=== PATIENT | female | born 1980 | race Caucasian/White ===

== ENCOUNTER 2018-04-01 20:57 | Emergency (ER) | payer MEDICAID ==
[~2018-04-01] VITALS: Ht 175.3 cm; Wt 165.0 kg
[~2018-04-01 20:57] MED LIST: OMNIPAQUE 350 MG/ML, 100ML BOTTLE ONE
[2018-04-01] MEDS ORDERED: PLEASE ENTER HEIGHT AND WEIGHT MC SCH (21:30)
[2018-04-01] MEDS ORDERED: ONDANSETRON ODT 4 MG PO ONE (21:30)
[2018-04-01] MEDS ORDERED: SODIUM CHLORIDE FLUSH 10ML SYR IVF ONE ×2 (21:30)
[2018-04-01 21:32] LABS: BASOPHILS # (AUTO) 0.04 x10^3/uL (0-0.1); BASOPHILS % (AUTO) 0 % (0-1); EOSINOPHILS # (AUTO) 0.11 x10^3/uL (0-0.4); EOSINOPHILS % (AUTO) 1 % (1-7); LYMPHOCYTES # (AUTO) 2.68 x10^3/uL (1-3.4); LYMPHOCYTES % (AUTO) 16 % (22-44); MD NO; MEAN CORPUSCULAR HEMOGLOBIN 32.3 pg (27.0-34.8); MONOCYTES # (AUTO) 0.48 x10^3/uL (0.2-0.8); MONOCYTES % (AUTO) 3 % (2-9); NEUTROPHILS # (AUTO) 13.96 x10^3/uL (1.8-6.8); NEUTROPHILS % (AUTO) 81 % (42-75); PLATELET COUNT 364 x10^3/uL (130-400); RED BLOOD COUNT 4.84 x10^6/uL (3.82-5.3); RED CELL DISTRIBUTION WIDTH 13.5 % (9.6-15.2)
[2018-04-01] MEDS ORDERED: MORPHINE SULFATE 4 MG/ML, 1ML ONE ×2 (21:37→22:24)
[2018-04-01] MEDS ORDERED: ONDANSETRON ODT 4 MG ONE (21:37)
[2018-04-01 21:43] LABS: ALANINE AMINOTRANSFERASE 27 U/L (12-78); ALBUMIN 3.5 g/dL (3.4-5.0); ANION GAP 10 mmol/L (5-15); CALCIUM 8.8 mg/dL (8.5-10.1); CHLORIDE 105 mmol/L (98-107)
[2018-04-01] MEDS: MORPHINE SULFATE 4 MG/ML, 1ML IVPush PRN ×2 (21:45→22:57)
[2018-04-01 21:48] LABS: ALKALINE PHOSPHATASE 105 U/L (45-117); BILIRUBIN,TOTAL 0.2 mg/dL (0.2-1.0); CREATININE 0.97 mg/dL (0.55-1.02); TOTAL PROTEIN 7.9 g/dL (6.4-8.2); TROPONIN I < 0.015 ng/mL (0.000-0.045)
[2018-04-01] MEDS ORDERED: ESTR2TAB PO (23:11)
[2018-04-01] MEDS ORDERED: LORA10TA62 PO (23:11)
[2018-04-01] MEDS ORDERED: SERT100T5 PO (23:11)
[2018-04-01] MEDS ORDERED: FLUT9.9S NAS (23:11)
[2018-04-01] MEDS ORDERED: EMTR1TAB8 PO (23:11)
[2018-04-01] MEDS ORDERED: ALBU18HF INH (23:11)
[2018-04-01] MEDS ORDERED: RISP2TAB3 PO (23:11)
[2018-04-01] MEDS ORDERED: FINA5TAB4 PO (23:11)
[2018-04-01] MEDS ORDERED: PANT40TA5 PO (23:11)
[2018-04-01] MEDS ORDERED: MEDR5TAB2 PO (23:11)
[2018-04-01] MEDS ORDERED: PROP10TA PO (23:11)
[2018-04-01] MEDS ORDERED: SIMV10TA3 PO (23:11)
[2018-04-01] MEDS ORDERED: ZOLP10TA5 PO (23:11)
[2018-04-01] MEDS ORDERED: BUPR150T6 PO (23:11)
[2018-04-01] MEDS ORDERED: CYCL-259 PO (23:11)
[2018-04-01] MEDS ORDERED: SPIR100T2 PO (23:11)
[2018-04-02] VITALS: BP 123/69
[2018-04-02] MEDS ORDERED: OXYcodone/APAP 5/325MG TABLET ONE (00:35)
[2018-04-02] MEDS ORDERED: OXYcodone/APAP 5/325MG TABLET PO ONE (01:00)
[2018-04-02] MEDS ORDERED: MORPHINE SULFATE 4 MG/ML, 1ML IVPush ONE (01:00)
== END 2018-04-02 01:04 | disposition home or self-care (01) ==
LOC: ED 22:41
DX: R07.89 Other chest pain (principal); K29.00 Acute gastritis without bleeding; D72.829 Elevated white blood cell count, unspecified; R00.0 Tachycardia, unspecified; R94.31 Abnormal electrocardiogram [ECG] [EKG]; M19.90 Unspecified osteoarthritis, unspecified site; E78.00 Pure hypercholesterolemia, unspecified; F32.9 Major depressive disorder, single episode, unspecified; Z90.49 Acquired absence of other specified parts of digestive tract
CPT/HCPCS: 36415; 71045; 74177; 76700; 80053; 83690; 84484; 85025; 86677; 93005; 96374; 96376; 99285; Q0162; Q9967

== ENCOUNTER 2018-04-08 01:07 | Emergency (ER) | payer MEDICAID ==
[~2018-04-08] VITALS: Ht 175.3 cm; Wt 163.5 kg
[~2018-04-08 01:07] MED LIST changes: +ALBU18HF INH; +BUPR150T6 PO; +CYCL-259 PO; +EMTR1TAB8 PO; +ESTR2TAB PO; +FINA5TAB4 PO; +FLUT9.9S NAS; +LORA10TA62 PO; +MEDR5TAB2 PO; -OMNIPAQUE 350 MG/ML, 100ML BOTTLE ONE; +PANT40TA5 PO; +PROP10TA PO; +RISP2TAB3 PO; +SERT100T5 PO; +SIMV10TA3 PO; +SPIR100T2 PO; +ZOLP10TA5 PO
[2018-04-08 01:08] VITALS: BP 142/80
== END 2018-04-08 03:10 | disposition home or self-care (01) ==
LOC: ED 01:34
DX: S49.91XA Unspecified injury of right shoulder and upper arm, initial encounter (principal); E78.00 Pure hypercholesterolemia, unspecified; F17.200 Nicotine dependence, unspecified, uncomplicated; W18.40XA Slipping, tripping and stumbling without falling, unspecified, initial encounter; Y93.02 Activity, running; Y92.89 Other specified places as the place of occurrence of the external cause; Y99.8 Other external cause status
CPT/HCPCS: 99284

== ENCOUNTER 2018-05-04 23:03 | Emergency (ER) | payer MEDICAID ==
[~2018-05-04] VITALS: Ht 175.3 cm; Wt 118.5 kg
[~2018-05-04 23:03] MED LIST changes: -SPIR100T2 PO; +SPIR100T4 PO
[2018-05-05 00:29] LABS: ALBUMIN 3.3 g/dL (3.4-5.0); ANION GAP 9 mmol/L (5-15); CHLORIDE 108 mmol/L (98-107); CREATININE 0.96 mg/dL (0.55-1.02)
[2018-05-05 00:33] LABS: MEAN CORPUSCULAR HEMOGLOBIN 32.1 pg (27.0-34.8); MEAN CORPUSCULAR HGB CONC 34.4 g/dL (32.4-35.8); MEAN CORPUSCULAR VOLUME 93.3 fL (80-100); PLATELET COUNT 342 x10^3/uL (130-400); RED BLOOD COUNT 4.65 x10^6/uL (3.82-5.3); RED CELL DISTRIBUTION WIDTH 13.9 % (9.6-15.2); TROPONIN I < 0.015 ng/mL (0.000-0.045)
[2018-05-05 00:56] LABS: MD YES
[2018-05-05 00:59] LABS: BAND#(MANUAL) 0.17 x10^3/uL; BANDS%(MANUAL) 1 % (0-7); LYMPH#(MANUAL) 4.47 x10^3/uL (1-3.4); LYMPHS% (MANUAL) 26 % (22-44); MONOS#(MANUAL) 0.17 x10^3/uL (0.3-2.7); MONOS% (MANUAL) 1 % (2-9); SEG#(MANUAL) 12.38 x10^3/uL (1.8-6.8); SEGS% (MANUAL) 72 % (42-75)
[2018-05-05 01:00] LABS: <PLATELET ESTIMATE> ADEQUATE; <RBC MORPHOLOGY> NORMAL
[2018-05-05 01:01] LABS: <PLT MORPHOLOGY> NORMAL PLT MORPH
[2018-05-05] MEDS ORDERED: OXYcodone/APAP 5/325MG TABLET ONE (01:41)
[2018-05-05 01:42] VITALS: BP 142/88
[2018-05-05] MEDS ORDERED: OXYcodone/APAP 5/325MG TABLET PO ONE (02:00)
== END 2018-05-05 02:04 | disposition home or self-care (01) ==
LOC: ED 05-05 01:43
DX: M25.511 Pain in right shoulder (principal)
CPT/HCPCS: 36415; 71045; 80048; 82040; 84484; 85025; 85379; 93005; 99285

== ENCOUNTER 2018-05-15 21:53 | Inpatient (IN) | payer MEDICAID ==
[~2018-05-15] VITALS: Ht 175.3 cm; Wt 172.4 kg
[2018-05-15 22:31] LABS: BASOPHILS # (AUTO) 0.07 x10^3/uL (0-0.1); BASOPHILS % (AUTO) 1 % (0-1); EOSINOPHILS # (AUTO) 0.07 x10^3/uL (0-0.4); EOSINOPHILS % (AUTO) 1 % (1-7); LYMPHOCYTES # (AUTO) 1.83 x10^3/uL (1-3.4); LYMPHOCYTES % (AUTO) 13 % (22-44); MD NO; MEAN CORPUSCULAR HEMOGLOBIN 32.7 pg (27.0-34.8); MEAN CORPUSCULAR HGB CONC 34.9 g/dL (32.4-35.8); MEAN CORPUSCULAR VOLUME 93.7 fL (80-100); MEAN PLATELET VOLUME 6.9 fL (7.4-10.4); MONOCYTES # (AUTO) 0.72 x10^3/uL (0.2-0.8); MONOCYTES % (AUTO) 5 % (2-9); NEUTROPHILS # (AUTO) 11.26 x10^3/uL (1.8-6.8); NEUTROPHILS % (AUTO) 81 % (42-75); PLATELET COUNT 319 x10^3/uL (130-400); RED BLOOD COUNT 4.55 x10^6/uL (3.82-5.3); RED CELL DISTRIBUTION WIDTH 14.5 % (9.6-15.2)
[2018-05-15 22:41] LABS: INTERNATIONAL NORMALIZED RATIO 0.94 (0.93-1.1); PROTHROMBIN TIME 9.7 Seconds (9.6-11.5)
[2018-05-15 22:44] LABS: ALANINE AMINOTRANSFERASE 23 U/L (12-78); ALBUMIN 3.3 g/dL (3.4-5.0); ANION GAP 6 mmol/L (5-15); CALCIUM 8.6 mg/dL (8.5-10.1); CHLORIDE 108 mmol/L (98-107); CREATININE 0.99 mg/dL (0.55-1.02)
[2018-05-15 22:47] LABS: ALKALINE PHOSPHATASE 101 U/L (45-117); BILIRUBIN,TOTAL 0.3 mg/dL (0.2-1.0); TOTAL PROTEIN 7.5 g/dL (6.4-8.2)
[2018-05-15 23:06] LABS: MICROSCOPIC NOT IND
[2018-05-15 23:10] LABS: CULTURE INDICATED? NO
[2018-05-16] MEDS ORDERED: OMNIPAQUE 350 MG/ML, 100ML BOTTLE ONE (00:51)
[2018-05-16] MEDS ORDERED: PROG100C2 PO (02:33)
[2018-05-16] MEDS ORDERED: MELO15TA24 PO (02:33)
[2018-05-16] MEDS ORDERED: TOPI25CA PO (02:33)
[2018-05-16] MEDS ORDERED: SODIUM CHLORIDE 0.9% 1,000 ML IV SCH (03:33)
[2018-05-16] MEDS ORDERED: DOCUSATE 100 MG CAPSULE PO PRN (04:00)
[2018-05-16] MEDS ORDERED: hydrALAzine 20 MG/ML, 1ML IVPush PRN (04:00)
[2018-05-16] MEDS ORDERED: GUAIFENESIN/COD200MG-20MG/10ML LIQUID PO PRN (04:00)
[2018-05-16] MEDS ORDERED: ONDANSETRON 2MG/ML, 2ML IVPush PRN (04:00)
[2018-05-16] MEDS ORDERED: morphine SULFATE 10 MG/ML, 1ML IVPush PRN (04:00)
[2018-05-16] MEDS ORDERED: ACETAMINOPHEN 325 MG TABLET PO PRN (04:00)
[2018-05-16 04:33] LABS: HCT (SEDRATE) 43.1 % (34.6-47.8)
[2018-05-16 05:10] VITALS: BP 116/73
[2018-05-16 06:10] LABS: HEMOGLOBIN A1C 5.4 % (4.2-6.3)
[2018-05-16 07:15] VITALS: BP_SYST 107; BP_SYST 118; BP_SYST 123; BP_DIAS 69; BP_DIAS 71; BP_DIAS 86
[2018-05-16] MEDS: FLUTICASONE NASAL SPRAY 16GM NAS SCH (09:00)
[2018-05-16] MEDS ORDERED: SPIRONOLACTONE 50 MG TABLET ONE (09:34)
[2018-05-16] MEDS: ESTRADIOL 1 MG TABLET PO SCH ×3 (09:53→20:30)
[2018-05-16] MEDS: EMTRICITABINE/TENOFOVIR 200 MG/300 MG TABLET PO SCH (09:55)
[2018-05-16] MEDS: PANTOPROZOLE 40MG TABLET PO SCH (09:55)
[2018-05-16] MEDS: CYCLOBENZAPRINE 10 MG TABLET PO SCH ×3 (09:55→20:30)
[2018-05-16] MEDS: LORATADINE 10 MG TABLET PO SCH (09:56)
[2018-05-16] MEDS: PROPRANOLOL 10 MG TABLET PO SCH ×2 (09:56→20:30)
[2018-05-16] MEDS: SERTRALINE 100MG TABLET PO SCH (09:56)
[2018-05-16] MEDS: FINASTERIDE 5 MG TABLET PO SCH (09:56)
[2018-05-16] MEDS: SPIRONOLACTONE 100 MG TABLET PO SCH ×3 (09:57→20:30)
[2018-05-16] MEDS: PROGESTERONE 100 MG CAPSULE PO SCH (11:09)
[2018-05-16] MEDS: TOPIRAMATE 25 MG TABLET PO SCH ×3 (11:10→20:30)
[2018-05-16] MEDS: TEMPLATE NON-FORMULARY MED. (Albuterol Sulfate (Ventolin Hfa) 2 PUFF(S)) INH SCH (11:11)
[2018-05-16 14:00] VITALS: BP 103/71
[2018-05-16 19:45] VITALS: BP 128/83
[2018-05-16] MEDS: RISPERIDONE 2 MG TABLET PO SCH (20:29)
[2018-05-16] MEDS: SIMVASTATIN 10 MG TABLET PO SCH (20:30)
[2018-05-16] MEDS: ZOLPIDEM 10MG TABLET PO SCH (22:21)
[2018-05-17 01:56] VITALS: BP 103/60
[2018-05-17] MEDS: OXYcodone IR 5MG TABLET PO PRN (04:23)
[2018-05-17 05:30] LABS: CHLORIDE 106 mmol/L (98-107)
[2018-05-17 05:31] LABS: BASOPHILS # (AUTO) 0.04 x10^3/uL (0-0.1); BASOPHILS % (AUTO) 0 % (0-1); EOSINOPHILS # (AUTO) 0.11 x10^3/uL (0-0.4); EOSINOPHILS % (AUTO) 1 % (1-7); LYMPHOCYTES # (AUTO) 2.39 x10^3/uL (1-3.4); LYMPHOCYTES % (AUTO) 20 % (22-44); MD NO; MEAN CORPUSCULAR HEMOGLOBIN 32.6 pg (27.0-34.8); MEAN CORPUSCULAR HGB CONC 34.9 g/dL (32.4-35.8); MEAN CORPUSCULAR VOLUME 93.4 fL (80-100); MEAN PLATELET VOLUME 6.9 fL (7.4-10.4); MONOCYTES # (AUTO) 0.57 x10^3/uL (0.2-0.8); MONOCYTES % (AUTO) 5 % (2-9); NEUTROPHILS # (AUTO) 8.82 x10^3/uL (1.8-6.8); NEUTROPHILS % (AUTO) 74 % (42-75); PLATELET COUNT 330 x10^3/uL (130-400); RED BLOOD COUNT 4.51 x10^6/uL (3.82-5.3); RED CELL DISTRIBUTION WIDTH 14.6 % (9.6-15.2)
[2018-05-17 05:39] LABS: ANION GAP 7 mmol/L (5-15); CALCIUM 9.1 mg/dL (8.5-10.1); CREATININE 0.98 mg/dL (0.55-1.02)
[2018-05-17 07:42] VITALS: BP_SYST 125; BP_SYST 133; BP_SYST 134; BP_DIAS 80; BP_DIAS 84; BP_DIAS 93
[2018-05-17] MEDS: TEMPLATE NON-FORMULARY MED. (Albuterol Sulfate (Ventolin Hfa) 2 PUFF(S)) INH SCH (09:00)
[2018-05-17] MEDS: FLUTICASONE NASAL SPRAY 16GM NAS SCH (09:00)
[2018-05-17] MEDS: PROGESTERONE 100 MG CAPSULE PO SCH (10:58)
[2018-05-17] MEDS: SPIRONOLACTONE 100 MG TABLET PO SCH ×3 (10:58→21:15)
[2018-05-17] MEDS: ESTRADIOL 1 MG TABLET PO SCH ×3 (10:58→21:13)
[2018-05-17] MEDS: PANTOPROZOLE 40MG TABLET PO SCH (10:58)
[2018-05-17] MEDS: FINASTERIDE 5 MG TABLET PO SCH (10:58)
[2018-05-17] MEDS: PROPRANOLOL 10 MG TABLET PO SCH ×2 (10:59→21:00)
[2018-05-17] MEDS: EMTRICITABINE/TENOFOVIR 200 MG/300 MG TABLET PO SCH (10:59)
[2018-05-17] MEDS: LORATADINE 10 MG TABLET PO SCH (10:59)
[2018-05-17] MEDS: CYCLOBENZAPRINE 10 MG TABLET PO SCH ×3 (10:59→21:14)
[2018-05-17] MEDS: SERTRALINE 100MG TABLET PO SCH (10:59)
[2018-05-17] MEDS: TOPIRAMATE 25 MG TABLET PO SCH ×3 (10:59→21:15)
[2018-05-17 13:08] VITALS: BP_SYST 105; BP_SYST 118; BP_SYST 121; BP_DIAS 75; BP_DIAS 81; BP_DIAS 84
[2018-05-17] MEDS ORDERED: GADOBUTROL 10 MMOL/10 ML PFS ONE (13:16)
[2018-05-17 20:57] VITALS: BP 99/66
[2018-05-17] MEDS: ZOLPIDEM 10MG TABLET PO SCH (21:14)
[2018-05-17] MEDS: RISPERIDONE 2 MG TABLET PO SCH (21:15)
[2018-05-17] MEDS: SIMVASTATIN 10 MG TABLET PO SCH (21:15)
[2018-05-18 04:28] VITALS: BP 128/94
[2018-05-18] MEDS: OXYcodone IR 5MG TABLET PO PRN (05:18)
[2018-05-18] MEDS: PROPRANOLOL 10 MG TABLET PO SCH ×2 (05:37→20:21)
[2018-05-18 07:37] VITALS: BP 123/77
[2018-05-18 08:42] LABS: BASOPHILS # (AUTO) 0.07 x10^3/uL (0-0.1); BASOPHILS % (AUTO) 1 % (0-1); EOSINOPHILS # (AUTO) 0.08 x10^3/uL (0-0.4); EOSINOPHILS % (AUTO) 1 % (1-7); LYMPHOCYTES # (AUTO) 2.45 x10^3/uL (1-3.4); LYMPHOCYTES % (AUTO) 17 % (22-44); MD NO; MEAN CORPUSCULAR HEMOGLOBIN 32.4 pg (27.0-34.8); MEAN CORPUSCULAR HGB CONC 34.7 g/dL (32.4-35.8); MEAN CORPUSCULAR VOLUME 93.5 fL (80-100); MEAN PLATELET VOLUME 6.8 fL (7.4-10.4); MONOCYTES % (AUTO) 4 % (2-9); NEUTROPHILS # (AUTO) 11.41 x10^3/uL (1.8-6.8); NEUTROPHILS % (AUTO) 78 % (42-75); PLATELET COUNT 331 x10^3/uL (130-400); RED BLOOD COUNT 4.66 x10^6/uL (3.82-5.3); RED CELL DISTRIBUTION WIDTH 14.6 % (9.6-15.2)
[2018-05-18 08:48] LABS: ANION GAP 9 mmol/L (5-15); CALCIUM 8.5 mg/dL (8.5-10.1); CHLORIDE 105 mmol/L (98-107); CREATININE 1.03 mg/dL (0.55-1.02)
[2018-05-18] MEDS: TOPIRAMATE 25 MG TABLET PO SCH ×3 (08:52→20:22)
[2018-05-18] MEDS: CYCLOBENZAPRINE 10 MG TABLET PO SCH ×3 (08:52→20:20)
[2018-05-18] MEDS: PROGESTERONE 100 MG CAPSULE PO SCH (08:52)
[2018-05-18] MEDS: ESTRADIOL 1 MG TABLET PO SCH ×3 (08:52→20:22)
[2018-05-18] MEDS: PANTOPROZOLE 40MG TABLET PO SCH (08:52)
[2018-05-18] MEDS: LORATADINE 10 MG TABLET PO SCH (08:52)
[2018-05-18] MEDS: SERTRALINE 100MG TABLET PO SCH (08:52)
[2018-05-18] MEDS: SPIRONOLACTONE 100 MG TABLET PO SCH ×3 (08:53→20:21)
[2018-05-18] MEDS: TEMPLATE NON-FORMULARY MED. (Albuterol Sulfate (Ventolin Hfa) 2 PUFF(S)) INH SCH (09:00)
[2018-05-18] MEDS: FLUTICASONE NASAL SPRAY 16GM NAS SCH (09:00)
[2018-05-18] MEDS: EMTRICITABINE/TENOFOVIR 200 MG/300 MG TABLET PO SCH (11:07)
[2018-05-18] MEDS: FINASTERIDE 5 MG TABLET PO SCH (11:07)
[2018-05-18 12:24] VITALS: BP 117/83
[2018-05-18] MEDS: SIMVASTATIN 10 MG TABLET PO SCH (20:21)
[2018-05-18] MEDS: RISPERIDONE 2 MG TABLET PO SCH (20:21)
[2018-05-18] MEDS: ZOLPIDEM 10MG TABLET PO SCH (20:23)
[2018-05-18 20:49] VITALS: BP 117/79
[2018-05-19 03:14] VITALS: BP 115/60
[2018-05-19 07:51] VITALS: BP 116/82
[2018-05-19] MEDS: TEMPLATE NON-FORMULARY MED. (Albuterol Sulfate (Ventolin Hfa) 2 PUFF(S)) INH SCH (09:00)
[2018-05-19] MEDS: SERTRALINE 100MG TABLET PO SCH (09:27)
[2018-05-19] MEDS: PROGESTERONE 100 MG CAPSULE PO SCH (09:27)
[2018-05-19] MEDS: FLUTICASONE NASAL SPRAY 16GM NAS SCH (09:27)
[2018-05-19] MEDS: PANTOPROZOLE 40MG TABLET PO SCH (09:28)
[2018-05-19] MEDS: FINASTERIDE 5 MG TABLET PO SCH (09:28)
[2018-05-19] MEDS: PROPRANOLOL 10 MG TABLET PO SCH ×2 (09:28→20:37)
[2018-05-19] MEDS: SPIRONOLACTONE 100 MG TABLET PO SCH ×3 (09:28→20:37)
[2018-05-19] MEDS: LORATADINE 10 MG TABLET PO SCH (09:28)
[2018-05-19] MEDS: CYCLOBENZAPRINE 10 MG TABLET PO SCH ×3 (09:28→20:37)
[2018-05-19] MEDS: TOPIRAMATE 25 MG TABLET PO SCH ×3 (09:28→20:37)
[2018-05-19] MEDS: ESTRADIOL 1 MG TABLET PO SCH ×3 (09:29→20:38)
[2018-05-19] MEDS: EMTRICITABINE/TENOFOVIR 200 MG/300 MG TABLET PO SCH (09:29)
[2018-05-19 12:40] VITALS: BP 111/70
[2018-05-19] MEDS ORDERED: ZOLPIDEM 10MG TABLET PO PRN (14:30)
[2018-05-19] MEDS: LURASIDONE 20 MG TABLET PO SCH (16:51)
[2018-05-19 20:31] VITALS: BP 121/81
[2018-05-19] MEDS: SIMVASTATIN 10 MG TABLET PO SCH (20:37)
[2018-05-19] MEDS ORDERED: MELATONIN 3 MG TABLET PO SCH (21:00)
[2018-05-20 01:39] VITALS: BP 111/71
[2018-05-20 07:05] VITALS: BP 127/82
[2018-05-20] MEDS: TEMPLATE NON-FORMULARY MED. (Albuterol Sulfate (Ventolin Hfa) 2 PUFF(S)) INH SCH (09:00)
[2018-05-20] MEDS: FLUTICASONE NASAL SPRAY 16GM NAS SCH (09:46)
[2018-05-20] MEDS: SPIRONOLACTONE 100 MG TABLET PO SCH ×3 (09:46→21:23)
[2018-05-20] MEDS: CYCLOBENZAPRINE 10 MG TABLET PO SCH ×3 (09:47→21:23)
[2018-05-20] MEDS: PANTOPROZOLE 40MG TABLET PO SCH (09:47)
[2018-05-20] MEDS: PROGESTERONE 100 MG CAPSULE PO SCH (09:47)
[2018-05-20] MEDS: TOPIRAMATE 25 MG TABLET PO SCH ×3 (09:47→21:23)
[2018-05-20] MEDS: PROPRANOLOL 10 MG TABLET PO SCH ×2 (09:47→21:23)
[2018-05-20] MEDS: SERTRALINE 100MG TABLET PO SCH (09:47)
[2018-05-20] MEDS: LORATADINE 10 MG TABLET PO SCH (09:47)
[2018-05-20] MEDS: ESTRADIOL 1 MG TABLET PO SCH ×3 (09:48→21:24)
[2018-05-20] MEDS: FINASTERIDE 5 MG TABLET PO SCH (09:48)
[2018-05-20] MEDS: EMTRICITABINE/TENOFOVIR 200 MG/300 MG TABLET PO SCH (09:48)
[2018-05-20 14:39] VITALS: BP 107/77
[2018-05-20] MEDS: LURASIDONE 20 MG TABLET PO SCH (18:45)
[2018-05-20 19:46] VITALS: BP 117/78
[2018-05-20 21:22] VITALS: BP 101/68
[2018-05-20] MEDS: SIMVASTATIN 10 MG TABLET PO SCH (21:23)
[2018-05-21 00:54] VITALS: BP 110/81
[2018-05-21 07:05] VITALS: BP 136/84
[2018-05-21] MEDS: TEMPLATE NON-FORMULARY MED. (Albuterol Sulfate (Ventolin Hfa) 2 PUFF(S)) INH SCH (09:00)
[2018-05-21] MEDS: EMTRICITABINE/TENOFOVIR 200 MG/300 MG TABLET PO SCH (09:36)
[2018-05-21] MEDS: SERTRALINE 100MG TABLET PO SCH (09:36)
[2018-05-21] MEDS: ESTRADIOL 1 MG TABLET PO SCH (09:36)
[2018-05-21] MEDS: FLUTICASONE NASAL SPRAY 16GM NAS SCH (09:36)
[2018-05-21] MEDS: PANTOPROZOLE 40MG TABLET PO SCH (09:37)
[2018-05-21] MEDS: PROGESTERONE 100 MG CAPSULE PO SCH (09:37)
[2018-05-21] MEDS: PROPRANOLOL 10 MG TABLET PO SCH (09:37)
[2018-05-21] MEDS: LORATADINE 10 MG TABLET PO SCH (09:37)
[2018-05-21] MEDS: TOPIRAMATE 25 MG TABLET PO SCH (09:37)
[2018-05-21] MEDS: FINASTERIDE 5 MG TABLET PO SCH (09:37)
[2018-05-21] MEDS: CYCLOBENZAPRINE 10 MG TABLET PO SCH (09:37)
[2018-05-21] MEDS: SPIRONOLACTONE 100 MG TABLET PO SCH (09:37)
[2018-05-21] MEDS ORDERED: LURA20TA PO (10:47)
[2018-05-21] MEDS ORDERED: MELA1TAB22 PO (10:47)
[2018-05-21] MEDS ORDERED: MELATONIN 5 MG TABLET PO SCH (21:00)
== END 2018-05-21 12:55 | disposition home or self-care (01) | DRG 948 ==
LOC: ED 23:09 → EDIP 05-16 02:35 → 4EST 05-16 04:47 → DCLOUNGE 05-21 12:40
PROVIDERS: ADMIT Internal Medicine; ATTEND Internal Medicine
DX: R53.1 Weakness (principal); Z68.43 Body mass index [BMI] 50.0-59.9, adult; E78.5 Hyperlipidemia, unspecified; F41.9 Anxiety disorder, unspecified; F43.21 Adjustment disorder with depressed mood; G47.33 Obstructive sleep apnea (adult) (pediatric); W19.XXXA Unspecified fall, initial encounter; R00.0 Tachycardia, unspecified; E66.01 Morbid (severe) obesity due to excess calories; F31.9 Bipolar disorder, unspecified; F43.10 Post-traumatic stress disorder, unspecified; S09.90XA Unspecified injury of head, initial encounter; Z79.899 Other long term (current) drug therapy; Z81.8 Family history of other mental and behavioral disorders; Z82.49 Family history of ischemic heart disease and other diseases of the circulatory system; Z87.11 Personal history of peptic ulcer disease; Z90.49 Acquired absence of other specified parts of digestive tract
CPT/HCPCS: 36415; 70450; 70496; 70498; 70551; 72125; 72141; 72157; 72158; 80048; 80053; 81003; 83036; 84443; 85025; 85610; 85651; 85730; 86592; 93005; 99285; A9585; Q9967; J7030